=== PATIENT | male | born 1970 ===

== ENCOUNTER 2025-03-16 16:07 | Outpatient (REF) | payer OTHER, SELFPAY ==
[2025-03-16 17:54] LABS: Appearance Urine Clear; Color Urine Dark Yellow; Glucose Urine UA Negative (Negative); Leukocyte Esterase Urine Negative (Negative); Nitrite Urine Negative (Negative); PH 5.5 (5.0-9.0); Specific Gravity - Urine >= 1.030 (1.005-1.025); Urine Blood Negative (Negative); Urine Ketones Trace mg/dL (Negative); Urine Protein Trace mg/dL (Neg-Trace)
[2025-03-16 18:16] LABS: Alanine Aminotransferase 41 U/L (0-40); Albumin Level 4.1 g/dL (3.5-5.0); Anion Gap 9 (12-20); Bilirubin Total 0.5 mg/dL (0.0-1.0); Blood Urea Nitrogen 12 mg/dL (9-16); Calcium 8.7 mg/dL (8.4-10.2); Carbon Dioxide 27 mmol/L (22-29); Chloride 107 mmol/L (96-108); Cholesterol 209 mg/dL (<200); Estimated Glomerular Filt Rate > 60; Glucose Random 66 mg/dL (60-115); HDL Cholesterol 39 mg/dL (>40); LDL Cholesterol Calculated 131 mg/dL (<100); Potassium 3.4 mmol/L (3.3-5.1); Sodium 140 mmol/L (135-145); Triglycerides 195 mg/dL (<150)
--- OUTSIDE RECORDS SUMMARY | 2025-03-16 18:19 | XMS_ITS | Clinical Summary ---
Author Organization [employer] Address [address] [facility] 7[address] [place] [address] Care Team Providers Care Dam Tender Assistant Name Role Phone Clary Mccrary MD Primary Care Provider [phone] Allergies No known active allergies Medications Blood Pressure kit To use daily 1 kit 03/20/20 23 Active amLODIPine (Norvasc) 5 MG tabletIndication s:Primary hypertension Take 1 tablet (5 mg) by mouth Once per day. 30 tablet 5 03/16/20 25 Active lisinopril-hydro CHLOROthiazide 10-12.5 MG tabletIndication s:Primary hypertension Take 1 tablet by mouth Once per day. 30 tablet 5 03/16/20 25 Active amLODIPine (Norvasc) 5 MG tablet TAKE ONE TABLET BY MOUTH EVERY DAY 11/20/20 22 025 Discontinued(Re order (will not trigger notification to Pharmacy)) amLODIPine (Norvasc) 5 MG tabletIndication s:Primary hypertension Take 1 tablet (5 mg) by mouth Once per day. 90 tablet 1 04/19/20 24 025 Discontinued ibuprofen 600 MG tablet Take 1 tablet (600 mg) by mouth every 6 (six) hours if needed for mild pain for up to 20 doses. 20 tablet 11/11/20 24 025 Discontinued lisinopril-hydro CHLOROthiazide 10-12.5 MG tabletIndication s:Primary hypertension TAKE ONE TABLET BY MOUTH EVERY DAY 90 tablet 11/16/20 24 025 Discontinued(Re order (will not trigger notification to Pharmacy)) Active Problems Problem Noted Date Diagnosed Date Primary hypertension 12/18/2022 Finding of above normal blood pressure 4 Hypercholesterolemia 12/14/2013 Encounters Date Type Department Care Team Description 03/16/2025 3:00 PM EDT Office Visit [facility] MED & PEDS [address] [place] [address] Liliana Leonard MD Benign hypertension (Primary Dx); Primary hypertension 03/16/2025 Travel 03/10/2025 Refill [facility] [address] [place] [address] Clary Mccrary MD Primary hypertension from Last 3 Months Immunizations Name Administration Dates Next Due HepB-CpG 03/21/2024,02/08/2024 Influenza injectable quadrivalent preservative f ree 08/28/2020,09/12/2014 MMR 05/20/2024 Pfizer Covid-19 Vaccine 12+ 05/20/2024 Tdap 05/20/2024,05/29/2022 Zoster, Recombinant 02/08/2024,05/29/2022 Social History Tobacco Use Types Packs/Day Years Used Date Smoking Tobacco: Never Smokeless Tobacco: Never Tobacco Cessation:Counseling Given: Not Answered Alcohol Use Standard Drinks/Week Comments Never 0 (1 standard drink = 0.6 oz pur e alcohol) Housing Stability Answer Date Recorded What is your housing situation today? I have marybeth quach 11/10/[address] you li ve. Do you have problems with any of the following? None of the above 11/10/2024 Food Insecurity Answer Date Recorded Within the past 12 months, y ou worried that your food would run out before you got money to buy more: Never True 11/10/2024 Within the past 12 months,th e food you bought just didn't last and you didn't have enough money to get more: Never True 10/2024 Transportation Answer Date Recorded In the past 12 months, has l ack of transportation kept you from medical appts, meetings, work or from getting things needed for daily living? No 11/10/2024 Utilities Answer Date Recorded In the past 12 months, has t he electric, gas, oil or water company threatened to shut off services in your home? No 11/10/2024 Internet Access Answer Date Recorded Internet Access Q1 Yes 11/10/2024 Internet Access Q2 Not on file 11/10/2024 Sex and Gender Information Value Date Recorded Sex Assigned at Male 09/29/2022 10:20 AM EDT Legal Sex Male 10:20 AM EDT Gender Identity Male 09/29/2022 10:20 AM EDT Sexual Orientation Straight 09/29/2022 10 :20 AM EDT Last Filed Vital Signs Vital Sign Reading Time Taken Comments Blood Pressure 128/84 03/16/2025 3:55 PM EDT Pulse 80 03/16/2025 3:18 PM EDT Temperature 36.6 ??C (97.8 ??F) 03/16/2025 3:18 PM ED T Respiratory Rate 24 03/16/2025 3:18 PM EDT Oxygen Saturation - - Inhaled Oxygen Concentration - - Weight 102 kg (225 lb) 03/16/2025 3:18 PM EDT Height 176.5 cm (5' 9.5 ) 03/16/2025 3:18 PM EDT Body Mass Index 32.75 03/16/2025 3:18 PM EDT Plan of Treatment Upcoming Encounters Date Type Department Care Team (Late st Contact Info) Description 06/27/2025 4:00 PM EDT Office Visit [facility] MED & PEDS [address] [place] [address] Clary Mccrary MD [address] [place] [address] Health Maintenance Due Date Last Done Comments Anal Pap 1971 CT Colonography 1971 Colonoscopy 1971 Colorectal Cancer Screening 1971 Depression Screening 1971 FIT DNA/Cologuard 1971 FIT 1971 FOBT 1971 HIV Screening 1971 Lipid Panel 1971 03/16/2025 Sigmoidoscopy 1971 Alcohol/Substance Use Screening 1983 Hepatitis C Screening 1989 Hepatitis A Vaccines (1 of 2 - Risk 2-dose series) 1990 Pneumococcal Vaccine: 50+ Years (1 of 1 - PCV) 2021 IPV Vaccines (2 of 3 - Adult catch-up series) 06/23/2024 05/26/2024 COVID-19 Vaccine ( season) 2024 05/20/2024, 12/22/2022, 11/15/2021, Additional history exists Influenza Vaccine (#1) 2024 08/28/2020, 2013 Dental Oral Exam 04/19/2025 10/19/2024, , 07/18/2020 Dental Prophylaxis 04/19/2025 10/19/2024, 08/31/2020 Dental X-Ray: Bitewings 10/20/2025 10/19/20 24, 01/28/2024, 01/04/2024, Additional history exists SDOH Screening 12/15/2025 12/15/2024 Tobacco Screening 03/16/2026 03/16/2025 Dental X-Ray: Full Mouth 11/12/2027 024, 03/20/2023, 08/17/2019 DTaP/Tdap/Td Vaccines (3 - Td or Tdap) 05/20/2034 05/20/2024, 05/29/2022 RSV Patients and Patients Aged 60 years or older (1 - 1-dose 75+ series) 2046 Zoster Vaccines Completed 02/08/2024, 05/29/2022 Hepatitis B Vaccines Completed 03/21/2024, 02/08/20 HIB Vaccines Aged Out No longer eligi ble based on patient's age to complete this topic HPV Vaccines Aged Out No longer eligi ble based on patient's age to complete this topic Meningococcal Vaccine Aged Out No [place] eligible based on patient's age to complete this topic RSV under 20 months Aged Out No longe r eligible based on patient's age to complete this topic Rotavirus Vaccines Aged Out No longer eligible based on patient's age to complete this topic Procedures Procedure Name Priority Date/Time Associated Diagnosis Comments URINALYSIS WITH REFLEX MICROSCOPIC Routine 03/16/2025 4:15 PM EDT Benign hypertension LIPID PANEL, STANDARD Routine 03/16/2025 4:10 PM EDT Benign hypertension COMPREHENSIVE METABOLIC PANEL Routine 03/16/2025 4:10 PM EDT Benign hypertension PANORAMIC RADIOGRAPHIC IMAGE Routine 11/11/2024 10:00 AM EST Full PROPHYLAXIS - ADULT Routine 10/19/2024 8:00 AM EST BITEWINGS - 4 RADIOGRAPHIC IMAGES Routine 10/19/2024 8:00 AM EST COMPREHENSIVE ORAL EVALUATION - NEW OR ESTABLISHED PATIENT Routine 10/19/2024 8:00 AM EST from Last 3 Months or Most Recently Relevant to Health Maintenance Results * (ABNORMAL) Urinalysis with reflex microscopic (03/16/2025 4:15 PM EDT) Color Urine Dark Yellow [facility] Appearance Urine Clear [facility] PH 5.5 5.0 - 9.0 [facility] Glucose Urine UA Negative Negative mg/dL [facility] Urine Blood Negative Negative [facility] Specific [place] - Urine >=1.030(H) 1.005 - 1.025 [facility] Urine Protein Trace Neg-Trace mg/dL [facility] Urine Ketones Trace Negative mg/dL [facility] Nitrite Urine Negative Negative [facility] Leukocyte Esterase Urine Negative Negative [facility] Urine (Urine, Random) 03/16/2025 4:15 PM EDT 03/16/2025 5:39 PM EDT Narrative [facility] - 03/16/2025 5:57 PM EDT [id number], Clean Catch us Liliana Leonard MD LAB URINE ORDERABLES Final Re sult Performing Organization Address [facility]State[facility] Phone Number [facility] [address] [place] [phone] from Last 3 Months Insurance HSN PARTIAL * Guarantor: Anamaria Isbell Account Type Relation to Patient Date of Phone Billing Address Dental Self [address] [facility] [place] [address] DENTAL - HSN PARTIAL (MEDICAID) 2 [place] [address] Care Teams Dam Tender Assistant Relationship Specialty Start Date End Date Clary Mccrary MD [address] [place] [id number] PCP - General Internal Medicine 12/30/13
--- OUTSIDE RECORDS SUMMARY | 2025-03-16 18:19 | XMS_ITS | Encounter Summary ---
Author Organization [employer] Address [address] [facility] [address] [place] [address] Care Team Providers Care Grass Farmer Name Role Phone Clary Mccrary MD Primary Care Provider [phone] Reason for Visit * Reason Onset Date Comments rs endo appt 11/21/2024 Encounter Details Date Type Department Care Team ([facility] Contact Info) Description 11/21/2024 Telephone [facility] AD[facility] [address] [place] [address] Phong Baxter [address] [place] [address] rs endo appt Social History Tobacco Use Types Packs/Day Years Used Date Smoking Tobacco: Never Smokeless Tobacco: Never Alcohol Use Standard Drinks/Week Comments Never 0 [...] Orientation Straight 09/29/2022 10 :20 AM EDT documented as of this encounter Miscellaneous Notes * Telephone Encounter - Bharti Gavin - 11/21/2024 8:17 AM EST Patient cancelled due to being positive with covid. Currently testing negative but still has coughing. Would like to have another appt date rescheduled DR documented in this encounter Plan of Treatment Upcoming Encounters Date Type Department Care Team (Late st Contact Info) Description 06/27/2025 4:00 PM EDT Office Visit [facility] MED & PEDS [address] [place] [address] Clary Mccrary MD [address] [place] [address] documented as of this encounter Visit Diagnoses Not on filedocumented in this encounter Care Teams Grass Farmer Relationship Specialty Start Date End Date Clary Mccrary MD [address] [place] [address] PCP - General Internal Medicine 12/30/13 documented as of this encounter
--- OUTSIDE RECORDS SUMMARY | 2025-03-16 18:19 | XMS_ITS | Encounter Summary ---
Author Organization [employer] Address [address] [facility] [address], [place] [address] Care Team Providers Care Gasoline Pump Mechanic Name Role Phone Clary Mccrary MD Primary Care Provider [phone] Reason for Visit * Reason Comments Med Refill Encounter Details Date Type Department Care Team ([facility] Contact Info) Description 12/15/2022 Refill [facility]ED[facility] [address] [place] [address] Clary Mccrary MD [address] [place] [address] Primary hypertension (Primary Dx) Social History Tobacco Use Types Packs/Day Years Used Date Smoking Tobacco: Never Assessed Sex and Gender Information Value Date Recorded Sex Assigned at Male 09/29/2022 10:20 AM EDT Legal Sex Male 10:20 AM EDT Gender Identity Male 09/29/2022 10:20 AM EDT Sexual Orientation Straight 09/29/2022 10 :20 AM EDT documented as of this encounter Plan of Treatment Upcoming Encounters Date Type Department Care Team ([facility] Contact Info) Description 06/27/2025 4:00 PM EDT Office Visit [facility] MED & PEDS [address] [place] [address] Clary Mccrary MD [address] [place] [address] documented as of this encounter Visit Diagnoses Diagnosis Primary hypertension- Primary Unspecified essential hypertension documented in this encounter Care Teams Gasoline Pump Mechanic Relationship Specialty Start Date End Date Clary Mccrary MD [address] [place] [id number] PCP - General Internal Medicine 12/30/13 documented as of this encounter
--- OUTSIDE RECORDS SUMMARY | 2025-03-16 18:19 | XMS_ITS | Encounter Summary ---
Author Organization [employer] Address [address] [facility] 7t [place] [address] Care Team Providers Care Bit Sander Name Role Phone Clary Mccrary MD Primary Care Provider [phone] Reason for Visit * Reason Comments Med Refill Encounter Details Date Type Department Care Team ([facility] Contact Info) Description 03/10/2025 Refill [facility] MED & PEDS [address] [place] [address] Clary Mccrary MD [address] [place] [address] Primary hypertension Social History Tobacco Use Types Packs/Day Years [...] 4:00 PM EDT Office Visit [facility] MED & PEDS [address] [place] [address] Clary Mccrary MD [address] [place] [address] documented as of this encounter Visit Diagnoses Diagnosis Primary hypertension Unspecified essential hypertension documented in this encounter Care Teams Bit Sander Relationship Specialty Start Date End Date Clary Mccrary MD [address] [place] [address] PCP - General Internal Medicine 12/30/13 documented as of this encounter
--- OUTSIDE RECORDS SUMMARY | 2025-03-16 18:19 | XMS_ITS | Encounter Summary ---
Author Organization [employer] Address [address] [facility] [address] [address] Care Team Providers Care Cutch Cleaner Name Role Phone Clary Mccrary MD Primary Care Provider [phone] Reason for Visit * Reason Comments Med Refill Encounter Details Date Type Department Care Team ([facility] Contact Info) Description 12/29/2023 Refill [facility] MED & PEDS [address] [place] [address] Clary Mccrary MD [address] [place] [address] Primary hypertension Social History Tobacco Use Types Packs/Day Years Used Date Smoking Tobacco: Never Smokeless Tobacco: Never Alcohol Use Standard Drinks/Week Comments Never 0 (1 standard drink = 0.6 oz pur e alcohol) Sex and Gender Information Value Date Recorded Sex Assigned at Male 09/29/2022 10:20 AM EDT Legal Sex Male 10:20 AM EDT Gender Identity Male 09/29/2022 10:20 AM EDT Sexual Orientation Straight 09/29/2022 10 :20 AM EDT documented as of this encounter Plan of Treatment Upcoming Encounters Date Type Department Care Team ([facility] Contact Info) Description 06/27/2025 4:00 PM EDT Office Visit [facility] MED & PEDS [address] [place] [address] Clary Mccrary MD [address] [place] [address] documented as of this encounter Visit Diagnoses Diagnosis Primary hypertension Unspecified essential hypertension documented in this encounter Care Teams Cutch Cleaner Relationship Specialty Start Date End Date Clary Mccrary MD [address] [place] [phone] PCP - General Internal Medicine 12/30/13 documented as of this encounter
--- OUTSIDE RECORDS SUMMARY | 2025-03-16 18:19 | XMS_ITS | Encounter Summary ---
Author Organization [employer] Address [address] [facility] [address] [address] Care Team Providers Care Java Lead Engineer Name Role Phone Clary Mccrary MD Primary Care Provider [phone] Reason for Visit * Reason Comments Med Refill Encounter Details Date Type Department Care Team ([facility] Contact Info) Description 07/25/2024 Refill [facility]EDS [address] [place] [address] Clary Mccrary MD [address] [place] [address] Primary hypertension Social History Tobacco Use Types [...] Upcoming Encounters Date Type Department Care Team ([facility] Contact Info) Description 06/27/2025 4:00 PM EDT Office Visit [facility] [address] [place] [address] Clary Mccrary MD [address] [place] [address] documented as of this encounter Visit Diagnoses Diagnosis Primary hypertension Unspecified essential hypertension documented in this encounter Care Teams Java Lead Engineer Relationship Specialty Start Date End Date Clary Mccrary MD [address] [place] [id number] PCP - General Internal Medicine 12/30/13 documented as of this encounter
--- OUTSIDE RECORDS SUMMARY | 2025-03-16 18:19 | XMS_ITS | Encounter Summary ---
Author Organization [employer] Address [address] [facility] [address], [place] [address] Care Team Providers Care Erp Implementation Consultant Name Role Phone Clary Mccrary MD Primary Care Provider [phone] Encounter Details Date Type Department Care Team (Latest Contact Info) Description 08/17/2019 Abstract [facility] CONVERSIONS Dental, Provider, DDS Social History Tobacco Use Types Packs/Day Years [...] Upcoming Encounters Date Type Department Care Team ([facility] Contact Info) Description 06/27/2025 4:00 PM EDT Office Visit [facility] MED & PEDS [address] [place] [address] Clary Mccrary MD [address] [place] [address] documented as of this encounter Visit Diagnoses Not on filedocumented in this encounter Care Teams Erp Implementation Consultant Relationship Specialty Start Date End Date Clary Mccrary MD [address] [place] [address] PCP - General Internal Medicine 12/30/13 documented as of this encounter
--- OUTSIDE RECORDS SUMMARY | 2025-03-16 18:19 | XMS_ITS | Encounter Summary ---
Author Organization [employer] Address [address] [facility] [address] [place] [address] Care Team Providers Care Construction Executive Name Role Phone Clary Mccrary MD Primary Care Provider [phone] Encounter Details Date Type Department Care Team (Latest Contact Info) Description 03/16/2025 Travel Social History Tobacco Use Types Packs/Day Years Used Date Smoking Tobacco: Never Smokeless Tobacco: Never Alcohol Use Standard Drinks/Week Comments Never 0 (1 standard drink = 0.6 oz pur e alcohol) Housing Stability Answer Date Recorded What is your housing situation today? I have marybeth philomena 11/10/[address] you li [...] Description 06/27/2025 4:00 PM EDT Office Visit [facility] MED & PEDS [address] [place] [address] Clary Mccrary MD [address] [place] [address] documented as of this encounter Visit Diagnoses Not on filedocumented in this encounter Care Teams Construction Executive Relationship Specialty Start Date End Date Clary Mccrary MD [address] [place] [address] PCP - General Internal Medicine 12/30/13 documented as of this encounter
--- OUTSIDE RECORDS SUMMARY | 2025-03-16 18:19 | XMS_ITS | Encounter Summary ---
Author Organization [employer] Address [address] [facility] 7[address] [place] [address] Care Team Providers Care Chrome Tanning Drum Operator Name Role Phone Clary Mccrary MD Primary Care Provider [phone] [phone] Encounter Details Date Type Department Care Team ([facility] Contact Info) Description 03/16/2025 3:00 PM EDT Office Visit [facility] MED & PEDS [address] [place], [place] [id number] Liliana Leonard MD [address] [place] [address] Benign hypertension (Primary Dx); Primary hypertension Social History Tobacco Use Types [...] past 12 months, has t he electric, [employer], oil or water enGene threatened to shut off services in your [...] AM EDT documented as of this encounter Last Filed Vital Signs Vital Sign Reading [...] Mass Index 32.75 03/16/2025 3:18 PM EDT documented in this encounter Progress Notes * Liliana Leonard MD - 03/16/2025 3:00 PM EDT Subjective Patient ID: Anamaria Isbell is a 55 y.o. male who presents for No chief complaint on file.. HPI Review of Systems Objective BP 122/82 (BP Location: Left arm, Patient Position: Sitting, BP Cuff Size: Adult) Pulse 80 Temp97.8 ??F (36.6 ??C) (Oral) Resp 24 Ht 5' 9.5 (1.765 m) Wt 225 lb (102 kg) BMI 32.75 kg/m?? Physical Exam Assessment/Plan * Liliana Leonard MD - 03/16/2025 3:00 PM EDT Subjective Patient ID: Anamaria Isbell is a 55 y.o. male who presents for high blood pressure medication refill. SHANIA Angulo is a [address] Dietz. He tried to get refills of his BP medication but thepharmacy said there were no more, and he was directed to the same day clinic for evaluation before getting more refills. He has not been seen in the clinic for more than 2 years. He feels well. Has been taking his 2 blood pressure pills as prescribed. Measures his blood pressure periodically in his left arm and it runs around 126/86. He generally eats healthy home cooked meals, lots of fruits, and eats fast food only occasionally. Has a daily can of regular soda. 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 Review of Systems Constitutional: Negative for activity change, appetite change, fatigue and unexpected weight change. Respiratory: Negative for shortness of breath. Cardiovascular: Negative for chest pain, palpitations and leg swelling. Gastrointestinal: Positive for diarrhea. Negative for constipation. Genitourinary: Negative for difficulty urinating. Objective BP 128/84 (BP Location: Right arm, Patient Position: Sitting) Pulse 80 Temp 97.8 ??F (36.6 ??C)(Oral) Resp 24 Ht 5' 9.5 (1.765 m) Wt 225 lb (102 kg) BMI 32.75 kg/m?? Left arm 138/88 Physical Exam Constitutional: Appearance: He is not toxic-appearing. HENT: Head: Normocephalic and atraumatic. Mouth/Throat: Mouth: Mucous membranes are moist. Eyes: General: No scleral icterus. Conjunctiva/sclera: Conjunctivae normal. Pupils: Pupils are equal, round, and reactive to light. Cardiovascular: Rate and Rhythm: Normal rate and regular rhythm. Pulses: Normal pulses. Heart sounds: Normal heart sounds. No murmur heard. Pulmonary: Effort: Pulmonary effort is normal. Breath sounds: Normal breath sounds. No wheezing, rhonchi or rales. Abdominal: General: Abdomen is flat. Palpations: Abdomen is soft. Tenderness: There is no abdominal tenderness. Musculoskeletal: Right lower leg: No edema. Left lower leg: No edema. Skin: General: Skin is warm and dry. Capillary Refill: Capillary refill takes less than 2 seconds. Neurological: General: No focal deficit present. Mental Status: He is alert. Psychiatric: Mood and Affect: Mood normal. Behavior: Behavior normal. Assessment/Plan Diagnoses and all orders for this visit: Primary hypertension: While on medication, BP is well controlled. Today, BP is high in left arm andwithin goal in right arm. Will check renal function, electrolytes, UA today and resume home regimen. If lab results necessitate changes in the regimen, I will do so and inform him. Follow up with PCPDr. Lundberg in 3 months. - Comprehensive Metabolic Panel; Future - TSH W/Reflex to FT4; Future - Lipid Panel, Standard; Future - Urinalysis with reflex microscopic; Future - amLODIPine (Norvasc) 5 MG tablet; Take 1 tablet (5 mg) by mouth Once per day. - lisinopril-hydroCHLOROthiazide 10-12.5 MG tablet; Take 1 tablet by mouth Once per day. documented in this encounter Plan of Treatment Upcoming Encounters Date Type Department Care Team (Late st Contact Info) Description 06/27/2025 4:00 PM EDT Office Visit [facility] MED & PEDS [address] [place] [address] Clary Mccrary MD [address] [place] [address] Pending Results Name Type Priority Associated Diagnoses Date /Time Comprehensive Metabolic Panel Lab Routine Benign hypertension 03/16/2025 4:10 PM EDT Lipid Panel, Standard Lab Routine Benign hypertension 03/16/2025 4:10 PM EDT Scheduled Orders Name Type Priority Associated Diagnoses Orde r Schedule TSH W/Reflex to FT4 Lab Routine Benign hypertension Expected: 03/16/2025 (Approximate), Expires: 03/16/2026 documented as of this encounter Procedures Procedure Name Priority Date/Time Associated Diagnosis Comments URINALYSIS WITH REFLEX MICROSCOPIC Routine 03/16/2025 4:15 PM EDT Benign hypertension LIPID PANEL, STANDARD Routine 03/16/2025 4:10 PM EDT Benign hypertension COMPREHENSIVE METABOLIC PANEL Routine 03/16/2025 4:10 PM EDT Benign hypertension documented in this encounter Results * (ABNORMAL) Urinalysis with reflex microscopic (03/16/2025 4:15 PM EDT) Color Urine Dark Yellow [facility] Appearance Urine Clear [facility] PH 5.5 5.0 - 9.0 [facility] Glucose Urine UA Negative Negative mg/dL [facility] Urine Blood Negative Negative [facility] Specific [place] - Urine >=1.030(H) 1.005 - 1.025 [facility] Urine Protein Trace Neg-Trace mg/dL [facility] Urine Ketones Trace Negative mg/dL [facility] Nitrite Urine Negative Negative [facility] Leukocyte Esterase Urine Negative Negative [facility] Urine (Urine, Random) 03/16/2025 4:15 PM EDT 03/16/2025 5:39 PM EDT Narrative [facility] - 03/16/2025 5:57 PM EDT [id number], Clean Catch us Liliana Leonard MD LAB URINE ORDERABLES Final Re sult [facility] [address] [place] [address] [phone] documented in this encounter Visit Diagnoses Diagnosis Benign hypertension- Primary Essential hypertension, benign Primary hypertension Unspecified essential hypertension documented in this encounter Care Teams Chrome Tanning Drum Operator Relationship Specialty Start Date End Date Clary Mccrary MD [address] [place] [phone] PCP - General Internal Medicine 12/30/13 documented as of this encounter
--- OUTSIDE RECORDS SUMMARY | 2025-03-16 18:19 | XMS_ITS | Encounter Summary ---
Author Organization [employer] Address [address] [facility] [address] [address] Care Team Providers Care Photoengraving Photographer Name Role Phone Clary Mccrary MD Primary Care Provider [phone]- [phone] Encounter Details Date Type Department Care Team (Latest Contact Info) Description 04/27/2019 Abstract [facility] CONVERSIONS Dental, Provider, DDS Social History Tobacco [...] Upcoming Encounters Date Type Department Care Team ([facility] st Contact Info) Description 06/27/2025 4:00 PM EDT Office Visit [facility] MED & PEDS [address] [place] [address] Clary Mccrary MD [address] [place] [address] documented as of this encounter Visit Diagnoses Not on filedocumented in this encounter Care Teams Photoengraving Photographer Relationship Specialty Start Date End Date Clary Mccrary MD [address] [place] [address] PCP - General Internal Medicine 12/30/13 documented as of this encounter
--- OUTSIDE RECORDS SUMMARY | 2025-03-16 18:19 | XMS_ITS | Encounter Summary ---
Author Organization [employer] Address [address] [facility] [address], [place] [address] Care Team Providers Care Upholstery Covers Inspector Name Role Phone Clary Mccrary MD Primary Care Provider [phone] Reason for Visit * Reason Comments Med Refill Encounter Details Date Type Department Care Team ([facility] Contact Info) Description 03/22/2024 Refill [facility] MED & PEDS [address] [place] [address] Clary Mccrary MD [address] [place] [address] Primary hypertension Social History Tobacco Use Types [...] Upcoming Encounters Date Type Department Care Team ([facility] Contact Info) Description 06/27/2025 4:00 PM EDT Office Visit [facility] MED & PEDS [address] [place] [address] Clary Mccrary MD [address] [place] [address] documented as of this encounter Visit Diagnoses Diagnosis Primary hypertension Unspecified essential hypertension documented in this encounter Care Teams Upholstery Covers Inspector Relationship Specialty Start Date End Date Clary Mccrary MD [address] [place] [phone] PCP - General Internal Medicine 12/30/13 documented as of this encounter
--- OUTSIDE RECORDS SUMMARY | 2025-03-16 18:19 | XMS_ITS | Encounter Summary ---
Author Organization [employer] Address [address] [facility] [address], [place] [address] Care Team Providers Care Statistician Applied Name Role Phone Clary Mccrary MD Primary Care Provider [phone]- [phone] Encounter Details Date Type Department Care Team (Latest Contact Info) Description 08/31/2020 Abstract [facility] CONVERSIONS Dental, Provider, DDS Social History [...] Upcoming Encounters Date Type Department Care Team ([facility] Contact Info) Description 06/27/2025 4:00 PM EDT Office Visit [facility] MED & PEDS [address] [place] [address] Clary Mccrary MD [address] [place] [address] documented as of this encounter Visit Diagnoses Not on filedocumented in this encounter Care Teams Statistician Applied Relationship Specialty Start Date End Date Clary Mccrary MD [address] [place] [address] PCP - General Internal Medicine 12/30/13 documented as of this encounter
--- OUTSIDE RECORDS SUMMARY | 2025-03-16 18:19 | XMS_ITS | Encounter Summary ---
Author Organization [employer] Address [address] [place] [address] Care Team Providers Care Restaurant Attendant Name Role Phone Clary Mccrary MD Primary Care Provider [phone]- [phone] Encounter Details Date Type Department [facility] Description 12/18/2022 Orders Only [facility] MED & PEDS [address] [place] [address] Sangita Elliott LPN Social History Tobacco Use Types Packs/Day Years [...] Upcoming Encounters Date Type Department [facility] Description 06/27/2025 4:00 PM EDT Office Visit [facility] CH[facility] MED & PEDS [address] [place] [address] Clary Mccrary MD [address] [place] [address] documented as of this encounter Visit Diagnoses Not on filedocumented in this encounter Care Teams Restaurant Attendant Relationship Specialty Start Date End Date Clary Mccrary MD [address] [place] [address] PCP - General Internal Medicine 12/30/13 documented as of this encounter
[2025-03-16 18:21] LABS: Alkaline Phosphatase 119 U/L (39-117); Aspartate Amino Transferase 25 U/L (5-37)
[2025-03-16 18:28] LABS: TSH reflex Free T4 0.59 uIU/mL (0.32-4.0)
== END 2025-03-16 16:08 | disposition home or self-care (01) ==
LOC: HO.CHCLDS 16:07
PROVIDERS: Visit Provider Internal Medicine
DX: I10 Essential (primary) hypertension (principal)
CPT/HCPCS: 36415; 80053; 80061; 81003; 84443